=== PATIENT | female | born 1995 | race Two or more races ===

== ENCOUNTER 2019-12-28 11:00 | Outpatient (REF) | payer BC, SELFPAY | END 2019-12-28 11:01 | disposition home or self-care (01) | LOC: HO.LAB 11:00 | PROVIDERS: Visit Provider Internal Medicine | DX: Z20.828 Contact with and (suspected) exposure to other viral communicable diseases (principal) | CPT/HCPCS: 87635 ==

== ENCOUNTER 2020-02-07 15:51 | Outpatient (REF) | payer BC, SELFPAY | END 2020-02-07 15:52 | disposition home or self-care (01) | LOC: HO.LAB 15:51 | PROVIDERS: Visit Provider Internal Medicine | DX: Z20.828 Contact with and (suspected) exposure to other viral communicable diseases (principal) | CPT/HCPCS: C9803; U0003 ==

== ENCOUNTER 2020-02-18 08:32 | Outpatient (REF) | payer BC, SELFPAY | END 2020-02-18 08:33 | disposition home or self-care (01) | LOC: HO.LAB 08:32 | PROVIDERS: Visit Provider Internal Medicine | DX: Z20.828 Contact with and (suspected) exposure to other viral communicable diseases (principal) | CPT/HCPCS: C9803; U0003 ==

== ENCOUNTER 2020-04-04 11:16 | Outpatient (REF) | payer BC, SELFPAY | END 2020-04-04 11:17 | disposition home or self-care (01) | LOC: HO.LAB 11:16 | PROVIDERS: Visit Provider Internal Medicine | DX: Z20.822 Contact with and (suspected) exposure to COVID-19 (principal) | CPT/HCPCS: 36415; C9803; U0003 ==

== ENCOUNTER 2020-04-06 09:06 | Emergency (ER) | payer BC, SELFPAY ==
[2020-04-06 09:18] VITALS: BP 115/76; PULSE 112; RESP 14; TEMP 36.4; O2SAT 97; BMI 21.7
--- NOTE | 2020-04-06 09:26 | ED.BACK ---
HPI - Back Pain/Injury General Chief Complaint: Back Pain/Injury Stated Complaint: back pain, covid + Time Seen by Provider: 04/06/20 09:26 Source: patient Mode of arrival: ambulatory Limitations: no limitations History of Present Illness HPI Narrative: working out now has isolated low back pain - just found out she has COVID (asymptomatic) - no b/b incontinence, no saddle anesthesia MD elicited complaint: back injury Pertinent past history: other (working out) Onset (ago): day(s) (yesterday) Timing: constant Severity: moderate Similar Symptoms Previously: No Quality: dull and aching Location: lumbar spine Radiation: none Exacerbating factors: movement Relieving factors: none Context: while lifting Associated symptoms: denies other symptoms Work related injury: No Related Data Home Medications Medication Instructions Recorded Confirmed No Known Home Meds 04/06/20 04/06/20 Previous Rx's Medication Instructions Recorded diazepam [Valium] 5 mg PO TID PRN #10 tab 04/06/20 ibuprofen 600 mg PO BID PRN #30 tab 04/06/20 lidocaine 1 patch TOPICAL DAILY PRN #10 ea 04/06/20 Allergies Allergy/AdvReac Type Severity Reaction Status Date / Time No Known Allergies Allergy Unverified 12/08/19 19:17 [No Known Allergies*] Review of Systems Review of Systems: Constitutional : No Weight loss, No Fever, No Chills, ENT/Mouth : No Hearing loss, No Ear Pain, No Nasal Congestion, No Sinus Pain, No Hoarseness, No sore throat, No Rhinorrhea, No Swallowing Difficulty Cardiovascular : No Chest Pain, No SOB Respiratory : No Cough, No Dyspnea Gastrointestinal : No Nausea, No Vomiting, No Diarrhea, No abdominal Pain, No Hematochezia, No Melena Genitourinary : No Dysuria, No Urinary Frequency, No Hematuria, No Urinary Incontinence, Musculoskeletal : positive back pain Skin : No Skin Lesions, No rash Neuro : No Weakness, No Numbness, No Paresthesias, no loss of bowel or bladder incontinence, no saddle anesthesia PMFSH Past Medical History Attestation statement: The following information was validated with the patient. Medical History No known health problems Social History Social History (Updated 04/06/20 @ 09:29 by Yamila Red, DO) Smoking Status: Never smoker Physical Exam Vital Signs: Vital Signs: Last Vital Signs Temp 97.5 F 04/06/20 09:18 Pulse 112 H 04/06/20 09:18 Resp 14 04/06/20 09:18 BP 115/76 04/06/20 09:18 Pulse Ox 97 04/06/20 09:18 Body Mass Index 21.7 Appearance: Alert. Oriented X3. No acute distress. Eyes: Pupils equal, round and reactive to light. ENT: Pharynx normal. Neck: Normal inspection. Neck supple. CVS: Normal heart rate and rhythm. Pulses normal. Respiratory: No respiratory distress. Breath sounds normal. Abdomen: Soft and nontender. Back: ttp along lower paraspinals, no CVA ttp, no vert point ttp Skin: Skin warm and dry. Normal skin color. Normal skin turgor. Extremities: No lower extremity edema. No calf ttp Neuro: Oriented X 3. No motor deficit. No sensory deficit. MDM - Back Pain/Injury MDM Narrative Medical decision making narrative: 24 yo female was working out now has low back pain - tried flexeril with no relief, no b/b incontinence, no saddle anesthesia - no AC therapy, no IVDA - likely strain, dx with COVID but no other body aches or pain to suggest rhabdo Discharge Plan Discharge Clinical Impression: Strain of lumbar region Qualifiers: Encounter type: initial encounter Qualified Code(s): S39.012A - Strain of muscle, fascia and tendon of lower back, initial encounter Patient Disposition: Home, Self-Care Instructions: Acute Low Back Pain (ED) Additional Instructions: return to ED for any worsening symptoms or concerns Prescriptions: New lidocaine 4 % adhesive patch,medicated 1 patch topical DAILY PRN (Reason: pain) Qty: 10 RF: 0 ibuprofen 600 mg tablet 600 mg PO BID PRN (Reason: pain) Qty: 30 RF: 0 diazepam [Valium] 5 mg tablet 5 mg PO TID PRN (Reason: muscle spasm) Qty: 10 RF: 0 No Action No Known Home Meds RF: 0
== END 2020-04-06 09:55 | disposition home or self-care (01) ==
LOC: HO.ED 09:44
PROVIDERS: Emergency Provider Emergency Medicine; PCP Internal Medicine
DX: S39.012A Strain of muscle, fascia and tendon of lower back, initial encounter (principal); X50.1XXA Overexertion from prolonged static or awkward postures, initial encounter; Z86.16 Personal history of COVID-19; Y93.B9 Activity, other involving muscle strengthening exercises; Y92.019 Unspecified place in single-family (private) house as the place of occurrence of the external cause; Y99.9 Unspecified external cause status
CPT/HCPCS: 99282

== ENCOUNTER 2021-03-19 15:38 | Outpatient (REF) | payer OTHER, SELFPAY ==
[2021-03-19 16:31] LABS: Influenza A PCR NEGATIVE (Negative); Influenza B PCR NEGATIVE (Negative); Resp Syncy Virus RNA Qual PCR NEGATIVE (Negative); SARS COV2 PCR INHOUSE NEGATIVE (Negative)
== END 2021-03-19 15:39 | disposition home or self-care (01) ==
LOC: HO.LNP 15:38
PROVIDERS: Visit Provider Internal Medicine
DX: Z20.822 Contact with and (suspected) exposure to COVID-19 (principal); R05.9 Cough, unspecified; R51.9 Headache, unspecified
CPT/HCPCS: 0241U

== ENCOUNTER 2021-03-28 14:20 | Outpatient (REF) | payer OTHER, SELFPAY ==
[2021-03-28 14:37] LABS: COVID-19 Test Positive (Negative)
== END 2021-03-28 14:21 | disposition home or self-care (01) ==
LOC: HO.LNP 14:20
PROVIDERS: Visit Provider Internal Medicine
DX: Z20.822 Contact with and (suspected) exposure to COVID-19 (principal)
CPT/HCPCS: 87635

== ENCOUNTER 2022-01-06 13:57 | Emergency (ER) | payer OTHER, SELFPAY ==
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
[2022-01-06 14:06] VITALS: BP 128/82; PULSE 93; O2SAT 99
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
[2022-01-06 15:03] VITALS: BP 128/73; PULSE 98; RESP 16; TEMP 36.8; O2SAT 98; BMI 22.6
[2022-01-06] MEDS: Cyclobenzaprine HCl 5 MG TABLET PO (15:45)
[2022-01-06] MEDS: Ondansetron ODT 4 MG TAB.RAPDIS TRANSLINGU (15:45)
[2022-01-06] MEDS: Ketorolac Tromethamine 15 MG/ML VIAL IM (15:46)
--- NOTE | 2022-01-06 16:36 | PC.NURSE ---
Discharge instructions provided to pt. All questions answered. Pt verbalized understanding.
== END 2022-01-06 16:37 | disposition home or self-care (01) ==
PROVIDERS: Emergency Provider Emergency Medicine; PCP Internal Medicine
DX: Z04.1 Encounter for examination and observation following transport accident (principal); M54.2 Cervicalgia; R07.9 Chest pain, unspecified; R11.0 Nausea
CPT/HCPCS: 70450; 71046; 72125; 96372; 99283; 99284; J1885